=== PATIENT | female | born 1940 | race Caucasian/White ===

== ENCOUNTER 2020-06-14 12:23 | Emergency (ER) | payer OTHER ==
[~2020-06-14] VITALS: Ht 165.1 cm; Wt 57.0 kg
[2020-06-14 13:38] VITALS: BP 124/60
== END 2020-06-14 13:53 | disposition left against medical advice (07) ==
LOC: ER 12:33
DX: R55 Syncope and collapse (principal)
CPT/HCPCS: 99283